=== PATIENT | male | born 1935 | race Caucasian/White ===

== ENCOUNTER → 2016-11-11 | Outpatient (REF) | payer OTHER, MEDICARE ==
[2016-11-11 13:09] LABS: ALBUMIN 3.5 GM/DL (3.2-5.2); ALKALINE PHOSPHATASE 83 U/L (45-117); ALT/SGPT 7 U/L (12-78); ANION GAP 5 MEQ/L (8-16); AST/SGOT 17 U/L (15-37); BILIRUBIN,TOTAL 0.8 MG/DL (0.2-1.0); BLOOD UREA NITROGEN 11 MG/DL (7-18); CALCIUM LEVEL 8.6 MG/DL (8.8-10.2); CARBON DIOXIDE LEVEL 31 MEQ/L (21-32); CHLORIDE LEVEL 103 MEQ/L (98-107); CHOLESTEROL LEVEL 177 MG/DL (<200); CREATININE FOR GFR 0.95 MG/DL (0.70-1.30); GLOMERULAR FILTRATION RATE > 60.0 (>35); GLUCOSE, FASTING 96 MG/DL (83-110); POTASSIUM SERUM 4.3 MEQ/L (3.5-5.1); SODIUM LEVEL 139 MEQ/L (136-145); TRIGLYCERIDES LEVEL 97 MG/DL (<150)
[2016-11-11 13:37] LABS: BASO % 0.3 % (0.0-1.0); EOS # 0.1 K/mm3 (0.0-0.50); LARGE UNSTAINED CELL # 0.1 K/mm3 (0.0-0.4); LYMPH # 1.2 K/mm3 (1.5-4.5); LYMPH % 16.5 % (24.0-44.0); MEAN CORPUSCULAR HEMOGLOBIN 32.4 pg (27.0-33.0); MEAN CORPUSCULAR HGB CONC 32.5 g/dl (32.0-36.5); MEAN CORPUSCULAR VOLUME 99.7 fl (80.0-96.0); MONO # 0.4 K/mm3 (0.0-0.8); NEUTROPHILS # 5.3 K/mm3 (1.8-7.7); NEUTROPHILS % 76.2 % (36.0-66.0); PLATELET COUNT, AUTOMATED 263 k/mm3 (150-450); RED CELL DISTRIBUTION WIDTH 12.1 % (11.5-14.5)
[2016-11-15 10:51] LABS: CARCINOEMBRYONIC ANTIGEN 1.9 NG/ML (<2.5)
== END ==
LOC: M LABDRAWC 11:57
PROVIDERS: ATTEND Internal Medicine
DX: Z00.00 Encounter for general adult medical examination without abnormal findings (principal)

== ENCOUNTER → 2017-04-18 | Outpatient (CLI) | payer MEDICARE, MEDICAID ==
--- NOTE | 2017-04-18 18:02 | REP ---
KUB: Single view: History: Unspecified diarrhea. Findings: There is a large amount of formed stool in the rectum with mild distension of the rectum. Similar findings are seen in the cecum and splenic flexure region. Vascular calcification is noted. There are mild degenerative changes in the lumbar spine. Impression: Obstipation constipation pattern. Moderate stool in the right colon and rectum.
== END ==
LOC: M CLY 10:42
PROVIDERS: ATTEND Family Medicine
DX: R19.7 Diarrhea, unspecified (principal)

== ENCOUNTER → 2017-08-29 | Outpatient (CLI) | payer MEDICARE, MEDICAID | LOC: M CLY 14:14 | DX: S62.646A Nondisplaced fracture of proximal phalanx of right little finger, initial encounter for closed fracture (principal); W19.XXXA Unspecified fall, initial encounter; Y92.9 Unspecified place or not applicable; Y93.9 Activity, unspecified | CPT/HCPCS: G0463 ==

== ENCOUNTER → 2017-09-11 | Outpatient (REF) | payer MEDICARE, MEDICAID ==
[2017-09-11 20:25] LABS: BASO % 0.4 % (0.0-1.0); EOS # 0.4 10^3/uL (0.0-0.50); EOS % 4.5 % (0.0-3.0); HEMATOCRIT 45.2 % (42.0-52.0); HEMOGLOBIN 14.2 g/dl (14.0-18.0); IMMATURE GRANULOCYTE % 0.3 % (0-0); LYMPH # 2.2 10^3/uL (1.5-4.5); LYMPH % 24.3 % (24.0-44.0); MEAN CORPUSCULAR HEMOGLOBIN 31.7 pg (27.0-33.0); MEAN CORPUSCULAR HGB CONC 31.4 g/dl (32.0-36.5); MEAN CORPUSCULAR VOLUME 100.9 fl (80.0-96.0); MONO # 0.6 10^3/uL (0.0-0.8); MONO % 6.9 % (0.0-5.0); NEUTROPHILS # 5.7 10^3/uL (1.8-7.7); NEUTROPHILS % 63.6 % (36.0-66.0); PLATELET COUNT, AUTOMATED 230 10^3/uL (150-450); RED BLOOD COUNT 4.48 10^6/uL (4.30-6.10); RED CELL DISTRIBUTION WIDTH 12.6 % (11.5-14.5); WHITE BLOOD COUNT 8.9 10^3/uL (4.0-10.0)
[2017-09-11 20:31] LABS: APPEARANCE, URINE CLEAR (CLEAR); BACTERIA, URINE AUTO NEGATIVE (NEGATIVE); BILIRUBIN, URINE AUTO NEGATIVE (NEGATIVE); BLOOD, URINE BLOOD NEGATIVE (NEGATIVE); COLOR, URINE AMBER (YELLOW); GLUCOSE, URINE (UA) AUTO NEGATIVE (NEGATIVE); KETONE, URINE AUTO TRACE mg/dL (NEGATIVE); LEUKOCYTE ESTERASE, URINE AUTO NEGATIVE (NEGATIVE); MUCUS, URINE SMALL (NEGATIVE); NITRITE, URINE AUTO NEGATIVE (NEGATIVE); PROTEIN, URINE AUTO NEGATIVE (NEGATIVE); RBC, URINE AUTO 1 /HPF (0-3); SPECIFIC GRAVITY URINE AUTO 1.024 (1.002-1.035); SQUAMOUS EPITHELIAL CELL UR AU 1 /HPF (0-6); WBC, URINE AUTO 1 /HPF (0-3)
[2017-09-11 20:50] LABS: ESTIMATED AVERAGE GLUCOSE 103 MG/DL (60-110); HEMOGLOBIN A1c 5.2 %
[2017-09-11 21:10] LABS: ALBUMIN 3.8 GM/DL (3.2-5.2); ALBUMIN/GLOBULIN RATIO 1.03 (1.00-1.93); ALKALINE PHOSPHATASE 87 U/L (45-117); ALT/SGPT < 6 U/L (12-78); ANION GAP 7 MEQ/L (8-16); AST/SGOT 16 U/L (7-37); BILIRUBIN,TOTAL 0.8 MG/DL (0.2-1.0); BLOOD UREA NITROGEN 11 MG/DL (7-18); CALCIUM LEVEL 9.1 MG/DL (8.8-10.2); CARBON DIOXIDE LEVEL 30 MEQ/L (21-32); CHLORIDE LEVEL 102 MEQ/L (98-107); CHOLESTEROL LEVEL 189 MG/DL (<200); CREATININE FOR GFR 0.89 MG/DL (0.70-1.30); GLOMERULAR FILTRATION RATE > 60.0 (>35); GLUCOSE, FASTING 94 MG/DL (70-100); HDL CHOLESTEROL 50 MG/DL (>40); LDL CHOLESTEROL 119.2 MG/DL (<100); NON-HDL-C 139 MG/DL; POTASSIUM SERUM 4.3 MEQ/L (3.5-5.1); SODIUM LEVEL 139 MEQ/L (136-145); TOTAL PROTEIN 7.5 GM/DL (6.4-8.2); TRIGLYCERIDES LEVEL 99 MG/DL (<150)
== END ==
LOC: M LABDRAWC 17:02
DX: G20 Parkinson's disease (principal); E78.00 Pure hypercholesterolemia, unspecified; R73.01 Impaired fasting glucose
CPT/HCPCS: 80053

== ENCOUNTER → 2017-10-16 | Outpatient (REF) | payer MEDICARE, MEDICAID ==
[2017-10-16 16:05] LABS: HEMATOCRIT 40.7 % (42.0-52.0); HEMOGLOBIN 12.8 g/dl (14.0-18.0); MEAN CORPUSCULAR HEMOGLOBIN 32.4 pg (27.0-33.0); MEAN CORPUSCULAR HGB CONC 31.4 g/dl (32.0-36.5); PLATELET COUNT, AUTOMATED 200 10^3/uL (150-450); RED BLOOD COUNT 3.95 10^6/uL (4.30-6.10); WHITE BLOOD COUNT 7.6 10^3/uL (4.0-10.0)
[2017-10-16 17:41] LABS: ANION GAP 8 MEQ/L (8-16); BLOOD UREA NITROGEN 19 MG/DL (7-18); CALCIUM LEVEL 8.2 MG/DL (8.8-10.2); CARBON DIOXIDE LEVEL 26 MEQ/L (21-32); CHLORIDE LEVEL 108 MEQ/L (98-107); CREATININE FOR GFR 0.91 MG/DL (0.70-1.30); GLOMERULAR FILTRATION RATE > 60.0 (>35); GLUCOSE, FASTING 132 MG/DL (70-100); POTASSIUM SERUM 4.2 MEQ/L (3.5-5.1); SODIUM LEVEL 142 MEQ/L (136-145)
== END ==
LOC: M LAB REF 15:55
DX: I95.9 Hypotension, unspecified (principal)
CPT/HCPCS: 80048

== ENCOUNTER → 2018-02-11 | Outpatient (REF) | payer MEDICARE, MEDICAID ==
[2018-02-11 16:22] LABS: HEMATOCRIT 42.1 % (42.0-52.0); HEMOGLOBIN 13.4 g/dl (13.5-17.5); MEAN CORPUSCULAR HEMOGLOBIN 33.1 pg (27.0-33.0); MEAN CORPUSCULAR HGB CONC 31.8 g/dl (32.0-36.5); PLATELET COUNT, AUTOMATED 215 10^3/uL (150-450); RED BLOOD COUNT 4.05 10^6/uL (4.30-6.10); RED CELL DISTRIBUTION WIDTH 12.6 % (11.5-14.5); WHITE BLOOD COUNT 9.9 10^3/uL (4.0-10.0)
[2018-02-11 16:35] LABS: ALBUMIN 3.5 GM/DL (3.2-5.2); ALBUMIN/GLOBULIN RATIO 1.06 (1.00-1.93); ALKALINE PHOSPHATASE 84 U/L (45-117); ALT/SGPT 8 U/L (12-78); ANION GAP 7 MEQ/L (8-16); AST/SGOT 14 U/L (7-37); BILIRUBIN,TOTAL 0.6 MG/DL (0.2-1.0); BLOOD UREA NITROGEN 15 MG/DL (7-18); CALCIUM LEVEL 8.9 MG/DL (8.8-10.2); CARBON DIOXIDE LEVEL 30 MEQ/L (21-32); CHLORIDE LEVEL 105 MEQ/L (98-107); CREATININE FOR GFR 0.81 MG/DL (0.70-1.30); GLOMERULAR FILTRATION RATE > 60.0 (>35); GLUCOSE, FASTING 89 MG/DL (70-100); POTASSIUM SERUM 4.3 MEQ/L (3.5-5.1); SODIUM LEVEL 142 MEQ/L (136-145); TOTAL PROTEIN 6.8 GM/DL (6.4-8.2)
[2018-02-13 10:25] LABS: FOLATE 9.7 NG/ML; VITAMIN B12 LEVEL 282 PG/ML
== END ==
LOC: M SFHCCLAY 12:41
DX: G20 Parkinson's disease (principal); F43.12 Post-traumatic stress disorder, chronic; I10 Essential (primary) hypertension; Z23 Encounter for immunization
CPT/HCPCS: 80053; 82746

== ENCOUNTER → 2019-01-06 | Outpatient (CLI) | payer MEDICARE, MEDICAID ==
--- NOTE | 2019-01-06 18:00 | REP ---
LEFT SHOULDER, THREE VIEWS: HISTORY: Fall. There is no acute fracture or dislocation. There is minimal narrowing of the joint spaces. An osteophyte is present on the acromion. IMPRESSION:There is no acute fracture or dislocation.
== END ==
LOC: M CLY 14:43
PROVIDERS: ATTEND Family Medicine
DX: M25.712 Osteophyte, left shoulder (principal); M19.012 Primary osteoarthritis, left shoulder; G20 Parkinson's disease
CPT/HCPCS: 73030; G0463

== ENCOUNTER 2019-04-30 18:14 | Inpatient (IN) | payer MEDICARE, MEDICAID ==
[~2019-04-30] VITALS: Ht 175.3 cm; Wt 75.6 kg
[2019-04-30] MEDS ORDERED: HYDR1CRE30 TOP (18:27)
[2019-04-30] MEDS ORDERED: SELE5TAB4 PO (18:27)
[2019-04-30] MEDS ORDERED: SERT-138 PO (18:27)
[2019-04-30] MEDS ORDERED: CARB25TA9 PO (18:27)
[2019-04-30] MEDS ORDERED: NS 500 ML IV ONE (19:45)
[2019-04-30 20:06] LABS: BASO % 0.2 % (0.0-1.0); EOS # 0.1 10^3/uL (0.0-0.5); HEMATOCRIT 43.5 % (42.0-52.0); HEMOGLOBIN 13.9 g/dl (13.5-17.5); LYMPH # 1.4 10^3/uL (1.5-5.0); LYMPH % 14.9 % (24.0-44.0); MEAN CORPUSCULAR HEMOGLOBIN 32.9 pg (27.0-33.0); MEAN CORPUSCULAR VOLUME 102.8 fl (80.0-96.0); MONO # 0.8 10^3/uL (0.0-0.8); MONO % 8.1 % (0.0-5.0); NEUTROPHILS # 7.2 10^3/uL (1.5-8.5); NEUTROPHILS % 75.5 % (36.0-66.0); PLATELET COUNT, AUTOMATED 201 10^3/uL (150-450); RED BLOOD COUNT 4.23 10^6/uL (4.30-6.10); WHITE BLOOD COUNT 9.5 10^3/uL (4.0-10.0)
[2019-04-30 20:19] LABS: INR 1.14; PROTHROMBIN TIME 14.3 SECONDS (11.8-14.0)
[2019-04-30 20:20] LABS: PARTIAL THROMBOPLASTIN TIME 33.6 SECONDS (25.0-38.4)
[2019-04-30 20:32] LABS: ALBUMIN 3.6 GM/DL (3.2-5.2); ALT/SGPT 18 U/L (12-78); BILIRUBIN,DIRECT 0.3 MG/DL (0.0-0.2); BILIRUBIN,TOTAL 0.8 MG/DL (0.2-1.0); BLOOD UREA NITROGEN 13 MG/DL (7-18); CARBON DIOXIDE LEVEL 28 MEQ/L (21-32); CHLORIDE LEVEL 105 MEQ/L (98-107); CK-MB VALUE MASS 3.6 NG/ML (<3.6); CPK CREATINE PHOSPHOKINASE 232 U/L (39-308); CREATININE FOR GFR 0.86 MG/DL (0.70-1.30); GLOMERULAR FILTRATION RATE > 60.0 (>35); GLUCOSE, FASTING 93 MG/DL (70-100); LIPASE 59 U/L (73-393); MB/CK RELATIVE INDEX 1.55 (< OR =4); POTASSIUM SERUM 4.2 MEQ/L (3.5-5.1); SODIUM LEVEL 141 MEQ/L (136-145); TOTAL PROTEIN 6.7 GM/DL (6.4-8.2); TROPONIN I < 0.02 NG/ML (< 0.10)
[2019-05-01] MEDS ORDERED: DICL1GEL3 TOP (00:35)
--- NOTE | 2019-05-01 05:56 | ECGEPIP ---
[facility] - ED Test Date: 2019-04-30 Pat Name: CARLIE FREEMAN Department: Room: - Gender: Male Senior Systems Programmer: suleiman : 1935 Requested By: JOCELYN Rosales Order Number: [id number] Reading MD: Sigifredo Wall Measurements Intervals [place] Rate: 74 P: 57 [place]: 184 QRS: 66 QRSD: 141 T: 41 QT: 403 QTc: 450 Interpretive Statements SINUS RHYTHM RIGHT BUNDLE BRANCH BLOCK SEPTAL MYOCARDIAL INFARCTION, OF INDETERMINATE AGE NO PRIORS FOR COMPARISON Electronically Signed on 05-01-2019 5:56:26 EDT by Sigifredo Wall
[2019-05-01] MEDS ORDERED: VALSARTAN 80 MG TAB (DIOVAN) PO SCH (09:00)
[2019-05-01] MEDS: SERTRALINE 100 MG TAB PO SCH (09:36)
[2019-05-01] MEDS: SINEMET 25-100 MG TAB PO SCH ×4 (09:37→20:12)
[2019-05-01 09:39] VITALS: BP 152/81
--- NOTE | 2019-05-01 12:51 | IPN ---
DATE: 05/01/2019 Harley was admitted with reportedly orthostatic hypotension and uncontrolled parkinsonian symptoms. His history and physical is not transcribed at the time of morning rounds. PHYSICAL EXAM: Patient is asleep. According to staff, he had a restless night, so did not awaken him. Vital Signs: Stable. Lungs: Clear. Heart: Regular rhythm. Abdomen: Soft, nontender. He has a stage 2 decubitus right hip and abrasion right elbow. Neurologic: Exam was not obtainable. Orthostatic vital signs are still pending. LABS: Were done yesterday. They are all normal. IMPRESSION: 1. Parkinson's disease with reported orthostatic hypotension and uncontrolled symptoms. PLAN: Will wait for the history and physical. Per discussion with the admitting provider, the patient's family is planning placement. Patient and family services (PFS) will have to get involved on Friday.
--- NOTE | 2019-05-01 13:11 | HPE ---
DATE OF ADMISSION: 05/01/2019 CHIEF COMPLAINT: Weakness, unsteadiness. PRIMARY CARE PROVIDER: Dr. Carey This is an 84-year-old male with a history of Parkinson's, gait abnormality, anxiety, posttraumatic stress disorder (PTSD), mild dementia, carotid stenosis, hypercholesterolemia, myalgia, vitamin D deficiency who had met with his primary care provider a couple of days previous as he had been having increasing falls and abrasions. Asked why he came to the emergency room today it was again because of a fall, but he states he could not barely get up by himself and went to the emergency room. He said he was lightheaded at times, he felt his gait was more abnormal than it had been. He said that he having increasing weakness, that was the third time he fell this week. He felt to weak to go to the kitchen and make himself anything to eat. He has a sore on his right buttock and arm from where he fell and tried to get up. He is wearing depends. He says he has been to weak to go to the bathroom. Upon arrival, blood pressure was 138/68, pulse 76, respirations 18, temperature 97.5, oxygen saturation was 95% on room air. Laboratory studies showed a white count of 9.5, hemoglobin 13.9, hematocrit 43.5, platelets 201. Electrolytes are normal. BUN 15, creatinine 0.86. Lipase 59, AST/ALT are normal. Urine was +1 for blood, trace of ketones. PT was 14.3, INR 1.14, PTT 33.6. The patient had no complaints of pain. When I attempted to assist the patient to sit upon the side of the bed he was able to sit up but did not wish to try and take a step. Assessment was done and the patient will be admitted. He will ultimately need placement. Will currently admit for Parkinson's symptomatic, increasing weakness and falls to the medical floor. ALLERGIES: No known allergies. SOCIAL HISTORY: He lives alone. He does not smoke cigarettes. He does not use recreational drugs. He lives alone. PAST MEDICAL HISTORY: PTSD. Anxiety. Carotid stenosis. Dementia. Hypercholesterolemia. Parkinson's. Vitamin D deficiency. Gait abnormality. Right femur fracture years ago when he was in the [employer]. PAST SURGICAL HISTORY: Fractured right leg and repair. Colonoscopy with polyp resection. FAMILY HISTORY: Father of cardiac disease. Mother of cancer. HOME MEDICATIONS: - hydrocortisone cream topically twice a day to lesions from his fall - diclofenac topically four times a day as needed for pain - selegiline 5 mg by mouth twice a day - carbidopa/levodopa 25/100 two tabs by mouth four times a day - sertraline 100 mg by mouth daily REVIEW OF SYSTEMS: 11 systems review was done and was unremarkable other than as mentioned in the HPI, the increasing weakness, unsteady gait and frequent falls. No current complaints of pain. No other complaints. PHYSICAL EXAMINATION: 84-year-old cooperative male in no acute distress. Height 69 inches. Weight 75.6 kg, body mass index (BMI) 24.6. Patient is alert and oriented time three. Pupils equal and reactive to light. Pharynx, tongue and gums pink and moist. Tongue is midline. Neck is supple without lymphadenopathy. No thyromegaly, no goiter. Carotids are 2+ without bruit. Chest clear to auscultation. Heart is regular. Abdomen benign. Bowel sounds positive. /rectal not done. Extremities no clubbing, cyanosis, or edema. Peripheral pulses equal and palpable bilaterally. Abrasions noted on forearms and posterior thigh. No drainage on the right thigh. Not new. The patient states it has been there for a week from his rug. Abrasion on the right. Abrasion on the right medial arm. Peripheral pulses equal and palpable bilaterally. Moves all extremities but weakly. IMPRESSION/PLAN: Parkinson's, symptomatic, increasing weakness, and unsteady gait. Patient and family services (PFS) consult for possible placement. Physical therapy/occupational therapy evaluation and treat. History of depression, suicidal ideation. Continue sertraline. The patient will be admitted to the medical floor. [facility]
[2019-05-01] MEDS: ACETAMINOPHEN 500 MG TAB PO PRN ×2 (13:28→20:12)
[2019-05-01 14:00] VITALS: BP 95/50
[2019-05-01 15:00] VITALS: BP 84/50
[2019-05-01 15:20] VITALS: BP 84/50
[2019-05-01] MEDS ORDERED: NS 1,000 ML IV SCH (15:30)
[2019-05-01 16:20] VITALS: BP 104/55
[2019-05-01 22:00] VITALS: BP 108/57
[2019-05-02 06:00] VITALS: BP 126/67
[2019-05-02] MEDS: SINEMET 25-100 MG TAB PO SCH ×4 (09:27→20:05)
[2019-05-02] MEDS: SERTRALINE 100 MG TAB PO SCH (09:27)
[2019-05-02 14:00] VITALS: BP 110/57
[2019-05-02] MEDS: ACETAMINOPHEN 500 MG TAB PO PRN (20:06)
--- NOTE | 2019-05-02 21:35 | IPN ---
DATE: 05/02/2019 Harley feels well, more energetic, would like to start getting out of bed. His blood pressure was a little soft yesterday, gave him a half liter of IV fluids and it rebounded. PHYSICAL EXAMINATION: Blood pressure 126/76, pulse 66, respiratory rate 18, 94% oxygen saturation. Alert, conversant, no distress. Lungs: Clear. Heart: Regular rhythm. Abdomen: Soft, nontender. No peripheral edema. Parkinsonian tremor. IMPRESSION: Parkinson's disease with orthostatic hypotension. PLAN: He seems to be improved. Tomorrow he will probably go to a alf facility (SNF) level. Apparently, placement is planned. Patient and family services (PFS) is back tomorrow.
[2019-05-03 06:21] VITALS: BP 128/69
[2019-05-03] MEDS: SINEMET 25-100 MG TAB PO SCH ×4 (08:36→20:14)
[2019-05-03] MEDS: SERTRALINE 100 MG TAB PO SCH (08:37)
[2019-05-03 14:00] VITALS: BP 117/59
--- NOTE | 2019-05-03 16:21 | ECHO ---
DATE OF STUDY: 05/03/2019 REFERRING PHYSICIAN: Dr. Castro Carey INDICATION: Cardiac murmur, unspecified. HEIGHT: 175 cm WEIGHT: 76 kg 2-D MEASUREMENTS: Ventricular septum: 0.99 cm Posterior wall: 1.02 cm Left ventricle diastole: 4.2 cm Aortic root: 3.1 cm Left atrium: 3.3 cm Left atrial volume index: 19 Aortic annulus: 2.0 cm Inferior vena cava: 1.5 cm DOPPLER MEASUREMENTS: Trace aortic regurgitation. Mild aortic stenosis. Peak aortic valve velocity: 363 cm/s Aortic valve VTI: 52.8 cm Peak aortic valve gradient: 28 mmHg Mean aortic valve gradient: 15 mm hg LVOT velocity: 126 cm/s LVOT VTI: 24.0 cm Trace tricuspid regurgitation. Mitral E velocity: 86.8 cm/s Mitral A velocity: 81.5 cm/s Mitral deceleration time: 232 ms Mild tricuspid regurgitation. Estimated right ventricle systolic pressure 33-38 mmHg assuming an atrial pressure of 5-10 mmHg. Trace pulmonic regurgitation. Pulmonary artery systolic pressure 39 mmHg MITRAL ANNULAR TISSUE DOPPLER: E prime lateral: 8.2 cm/s E prime septal: 7.4 cm/s DESCRIPTION: Rhythm was sinus. This is a moderately, technically difficult echocardiogram especially for suprasternal views of the aortic arch. No pericardial effusion. This is a 2-D, M-mode, color flow Doppler and pulse waved Doppler examination and included mitral annular tissue Doppler. CONCLUSIONS: 1. Severe focal thickening and focal calcific deposits of a 3-cusp aortic valve. Moderate reduction in aortic cusp mobility. Mild aortic stenosis and trace aortic regurgitation. 2. Normal left ventricle internal dimensions and wall thickness. Normal regional LV wall motion and wall thickening. Normal LV systolic function. 3. Moderate mitral annular calcification. Trace mitral regurgitation. No mitral stenosis. 4. Suggestive of mild elevation of estimated right ventricle systolic pressure and pulmonary artery systolic pressure. 5. Otherwise, normal appearing echocardiogram-Doppler findings. [facility]
[2019-05-03 22:28] VITALS: BP 117/59
[2019-05-04 05:49] VITALS: BP 117/60
[2019-05-04] MEDS: SERTRALINE 100 MG TAB PO SCH (09:08)
[2019-05-04] MEDS: SINEMET 25-100 MG TAB PO SCH ×4 (09:08→20:04)
--- NOTE | 2019-05-04 12:49 | DS.PDOC ---
Discharge Summary General Date of Admission May 01, 2019 at 03:18 Date of Discharge SNF note Primary Care Physician: Castro Carey MD Attending Physician: Castro Carey MD Discharge Summary PROCEDURES PERFORMED DURING STAY: ECHO CONCLUSIONS: 1. Severe focal thickening and focal calcific deposits of a 3-cusp aortic valve. Moderate reduction in aortic cusp mobility. Mild aortic stenosis and trace aortic regurgitation. 2. Normal left ventricle internal dimensions and wall thickness. Normal regional LV wall motion and wall thickening. Normal LV systolic function. 3. Moderate mitral annular calcification. Trace mitral regurgitation. No mitral stenosis. 4. Suggestive of mild elevation of estimated right ventricle systolic pressure and pulmonary artery systolic pressure. 5. Otherwise, normal appearing echocardiogram-Doppler findings. ADMITTING DIAGNOSES: 1. Neurogenic orthostatic hypotension 2. Parkinson's disease 3. Repeated falls 4. Weakness 5. Murmur COMPLICATIONS/CHIEF COMPLAINT: Parkinson Disease, Symptomatic. HISTORY OF PRESENT ILLNESS: 84-year-old male with a history of Parkinson's, gait abnormality, anxiety, posttraumatic stress disorder (PTSD), mild dementia, carotid stenosis, hypercholesterolemia, myalgia, vitamin D deficiency presented to the the emergency room d/t recurrent falls and weakness because of a fall, he stated he could not barely get up by himself. He said he was lightheaded at times, he felt his gait was more abnormal than it had been. He said that he having increasing weakness, that was the third time he fell this week. He felt to weak to go to the kitchen and make himself anything to eat. He was admitted to [address] [place] [address] COURSE: Patient was admitted to [address] [place] [address] for evaluation and management of his orthostats and weakness. Patient was treated with IVF and PFS was consulted. He did well throughout his hospitalization, worked with PT. Placement to a buttermilk drier operator care facility was determined to be most appropriate. DISCHARGE MEDICATIONS: Please see below. ALLERGIES: Please see below. PHYSICAL EXAMINATION ON DISCHARGE: VITAL SIGNS: Please see below. GENERAL: AOx3 HEENT: unremarkable NECK: soft, supple CARDIOVASCULAR EXAMINATION: RRR RESPIRATORY EXAMINATION: CTA ABDOMINAL EXAMINATION: soft, nontender EXTREMITIES: no edema NEUROLOGICAL EXAMINATION: Parkinsonian tremor LABORATORY DATA: Please see below. PROGNOSIS: Goog ACTIVITY:As tolerated DIET: Regular DISCHARGE PLAN: [facility] DISCHARGE INSTRUCTIONS: To be completed upon discharge Vital Signs/I&Os Vital Signs Date Time Temp Pulse Resp B/P (MAP) Pulse Ox O2 Delivery O2 Flow Rate FiO2 05/04/19 05:49 97.4 71 16 117/60 (79) 96 04/30/19 18:38 Room Air I&O- Last 24 Hours up to 6 AM 05/04/19 06:00 Intake Total 1270 ml Output Total 870 ml Balance 400 ml Discharge Medications Scheduled Carbidopa/Levodopa (Carbidopa-Levodopa 25-100 Tab) 1 Each Tablet, 2 TAB PO QID, (Reported) Hydrocortisone (Hydrocortisone) 28 Gm Cream..g., 1 APLCT TOP BID, (Reported) Selegiline HCl (Selegiline HCl) 5 Mg Tablet, 5 MG PO BID, (Reported) Sertraline HCl (Sertraline HCl) 100 Mg Tablet, 100 MG PO DAILY, (Reported) Scheduled PRN Diclofenac Sodium (Diclofenac Sodium) 1% 100GM Gel..gram., 1 APLCT TOP QID PRN for PAIN, (Reported) APPLIES TO RIGHT ARM AND SHOULDER Allergies Coded Allergies: No Known Allergies (Verified Allergy, Unknown, 04/30/19) ISAIAS BARROW May 04, 2019 11:17
[2019-05-05 06:00] VITALS: BP 121/95
[2019-05-05] MEDS: SINEMET 25-100 MG TAB PO SCH ×4 (09:38→20:02)
[2019-05-05] MEDS: SERTRALINE 100 MG TAB PO SCH (09:38)
[2019-05-05 21:08] VITALS: BP 120/93
[2019-05-06 06:00] VITALS: BP 123/67
[2019-05-06] MEDS: SERTRALINE 100 MG TAB PO SCH (08:50)
[2019-05-06] MEDS: SINEMET 25-100 MG TAB PO SCH ×2 (08:50→12:34)
--- NOTE | 2019-05-06 16:20 | DSES ---
DATE OF ADMISSION: 05/01/2019 DATE OF DISCHARGE: 05/06/2019 REASON FOR ADMISSION Mr. Joseph was admitted after presenting to the ED after one of a series of falls resulting in minor injuries. He does have Parkinson's disease with evidence of blood pressure lability, episodes of hypotension associated with his Parkinson's disease and a history of falls at home, multiple skin tears. So far he has been fortunate to avoid major injury. He was admitted with weakness, lightheadedness, increasing gait abnormality. Imaging studies done during hospital stay were minimal. Laboratory studies showed normal hemoglobin and white count and chemistries remarkable only for a lipase that was low at 59, glucose was 93, BUN, creatinine sodium, potassium chloride all within normal limits. Urinalysis did not show evidence of infection. Coagulation studies were normal. He had an abrasion on his right elbow, large abrasion/skin tear on his right buttock. These were treated with gel type bulky dressing. MEDICATIONS: His usual medications including carbidopa levadopa 25/100 2 tablets four times a day were continued as was Zoloft 100 mg daily for which he was taking with a history of low mood/depression. Blood pressure in hospital was still somewhat labile initially 138/68 but then he dropped to 84/50 at 1320 in the afternoon on May 01 and more recently ranging between 104 and 123. ASSESSMENT Parkinson's disease with blood pressure lability, orthostatic hypotension complicating, repeated falls at home as result of mobility compromise and blood pressure variability. Skin tear secondary to falls. PLAN The patient will be today discharged and transferred to a retirement in [place] for ongoing care. Medications at the time of discharge include: Carbidopa levodopa as outlined, selegiline 5 mg by mouth twice a day has been added to his regimen before admission to hospital, but he has not been receiving this agent here and diclofenac topical to painful joints; has been something he has been using at home before admission. But at this time he is not taking selegiline or diclofenac. Current medications are as previously listed: sentiment 25/100 2 tablets four times a day, Tylenol 1000 every 6 hours as needed (p.r.n.) pain and sertraline 100 mg by mouth daily. Activity and diet will be as tolerated. Activity as cautioned by PT assessment and some monitoring for orthostatic symptoms may be in order with consideration for pharmacologic support which could include midodrine or other options.
== END 2019-05-06 13:45 | DRG 57 ==
LOC: M ED 18:14 → EDBD 18:14 → M ED INP 05-01 03:18 → M MS5PR 05-01 04:50
PROVIDERS: ADMIT Internal Medicine; ATTEND Family Medicine
DX: G90.3 Multi-system degeneration of the autonomic nervous system (principal); R26.89 Other abnormalities of gait and mobility; F41.9 Anxiety disorder, unspecified; F43.10 Post-traumatic stress disorder, unspecified; F03.90 Unspecified dementia, unspecified severity, without behavioral disturbance, psychotic disturbance, mood disturbance, and anxiety; I65.29 Occlusion and stenosis of unspecified carotid artery; G20 Parkinson's disease; R01.1 Cardiac murmur, unspecified; E78.00 Pure hypercholesterolemia, unspecified; E55.9 Vitamin D deficiency, unspecified; M79.10 Myalgia, unspecified site; R29.6 Repeated falls; Z87.81 Personal history of (healed) traumatic fracture; Z79.899 Other long term (current) drug therapy